=== PATIENT | female | born 1960 | race Caucasian/White ===

== ENCOUNTER 2023-12-20 08:12 | Outpatient (CLI) | payer MEDICARE, SELFPAY | END 2023-12-20 08:13 | disposition home or self-care (01) | PROVIDERS: PCP Family Medicine; Visit Provider Family Medicine | DX: I10 Essential (primary) hypertension (principal); F10.10 Alcohol abuse, uncomplicated; Z86.39 Personal history of other endocrine, nutritional and metabolic disease; Z13.220 Encounter for screening for lipoid disorders; Z13.21 Encounter for screening for nutritional disorder; Z11.59 Encounter for screening for other viral diseases | CPT/HCPCS: 80053; 80061; 82043; 82570; 82607; 86803 ==

== ENCOUNTER 2024-02-07 13:28 | Outpatient (CLI) | payer MEDICARE, SELFPAY ==
--- NOTE | 2024-02-07 13:45 | CRLHL7_ITS ---
For Patients: As a result of the Century Cures Act, medical imaging exams and procedure reports are released immediately into your electronic medical record. You may view this report before your referring provider. If you have questions, please contact your health care provider. CLINICAL HISTORY: Patient with cerebral aneurysm. TECHNIQUE: 3D TOF MRA of the head was performed. 3D MIP reformats were performed at an independent workstation. COMPARISON: None available. FINDINGS: The petrous, cavernous, and supraclinoid segments of the internal carotid arteries are patent. The anterior and middle cerebral arteries are patent. The anterior communicating artery is visualized and within normal limits. The intracranial vertebral arteries, basilar trunk, and posterior cerebral arteries are patent. 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 No evidence of cerebral aneurysm or findings to suggest an arterial-venous shunting lesion. IMPRESSION: 2mm left superior hypophyseal ICA aneurysm. Dictated by Keyur Vasquez MD @ 02/09/2024 10:23:07 PM (Electronically Signed)
--- NOTE | 2024-02-07 15:30 | CRLHL7_ITS ---
For Patients: As a result of the Century Cures Act, medical imaging exams and procedure reports are released immediately into your electronic medical record. You may view this report before your referring provider. If you have questions, please contact your health care provider. INDICATION: Lung cancer screening. History of smoking. TECHNIQUE: Low-dose lung cancer screening non-contrast CT chest. Dose reduction techniques were used. COMPARISON: None. FINDINGS: NODULES: None. LUNGS AND PLEURA: Normal. MEDIASTINUM: Normal. CORONARY ARTERY CALCIFICATION: None. LIMITED UPPER ABDOMEN: Normal. MUSCULOSKELETAL: Normal. IMPRESSION: 1. Negative for lung cancer screening purposes. LUNG-RADS CATEGORY 1: Negative. Continue annual screening with low-dose CT chest in 12 months. Please note that all CT scans at this facility use dose modulation, iterative reconstruction, and/or weight-based dosing when appropriate to reduce radiation dose to as low as reasonably achievable. Dictated by Tato Ford MD @ 02/08/2024 12:48:09 PM (Electronically Signed)
== END 2024-02-07 13:29 | disposition home or self-care (01) ==
PROVIDERS: PCP Family Medicine; Visit Provider Family Medicine
DX: I67.1 Cerebral aneurysm, nonruptured (principal); Z12.2 Encounter for screening for malignant neoplasm of respiratory organs; F17.200 Nicotine dependence, unspecified, uncomplicated
CPT/HCPCS: 70544; 71271

== ENCOUNTER 2024-04-25 07:02 | Outpatient (CLI) | payer MEDICARE, SELFPAY ==
--- NOTE | 2024-04-25 07:15 | CRLHL7_ITS ---
For Patients: As a result of the Century Cures Act, medical imaging exams and procedure reports are released immediately into your electronic medical record. You may view this report before your referring provider. If you have questions, please contact your health care provider. ULTRASOUND ABDOMINAL AORTA INDICATION: Abdominal aortic aneurysm screening. COMPARISON: None. TECHNIQUE: The abdominal aorta and iliac arteries were examined with childress-scale ultrasound, color flow and Doppler spectral analysis. Bypass grafts and stents may be evaluated per exam specific protocol. Vessel size, peak systolic velocity (PSV) and velocity ratios if applicable, were obtained and documented at sites per exam specific protocol. FINDINGS: Entire aorta visualized: Yes Proximal AO: 2.4 cm AP x 2.5 cm width Mid AO: 1.9 cm AP x 1.9 cm width Distal AO: 1.6 cm AP x 1.7 cm width Right GRETTA: 1.2 cm AP x 1.2 cm width Left GRETTA: 1.1 cm AP x 1.1 cm width Outpouching location: Infrarenal; 2 cm AP x 2.3 cm transverse x 1.5 cm long There is a saccular outpouching arising from the anterolateral right side of the infrarenal abdominal aorta which is suboptimally visualized. The abdominal aorta in this region measures approximately 2 x 2.3 cm in AP and transverse dimensions. Diffuse atherosclerotic disease is seen throughout the abdominal aorta. IMPRESSION: Focal saccular outpouching along the anterolateral right infrarenal abdominal aorta. Entities such as penetrating atherosclerotic ulcer or focal saccular abdominal aortic ectasia cannot be excluded. Recommend further characterization with contrast-enhanced CT angiogram of the abdomen and pelvis. TAMI ANAND M.D. Vascular and Interventional Radiology [email or web address] Transcribed: 11:[address]/Dictated by: Tami Anand MD @ 04/25/2024 11:01:00 AM (Electronically Signed)
== END 2024-04-25 07:03 | disposition home or self-care (01) ==
LOC: US 07:03
PROVIDERS: PCP Family Medicine; Visit Provider Family Medicine
DX: Z13.6 Encounter for screening for cardiovascular disorders (principal); I70.0 Atherosclerosis of aorta; Z87.891 Personal history of nicotine dependence
CPT/HCPCS: 76706

== ENCOUNTER 2024-05-04 16:34 | Outpatient (CLI) | payer MEDICARE, SELFPAY ==
--- NOTE | 2024-05-04 16:45 | CRLHL7_ITS ---
For Patients: As a result of the Century Cures Act, medical imaging exams and procedure reports are released immediately into your electronic medical record. You may view this report before your referring provider. If you have questions, please contact your health care provider. INDICATION: Chest pain. TECHNIQUE: CT chest without contrast and CT chest, abdomen and pelvis acquired with 100 cc Omnipaque 350 IV contrast, dissection protocol. COMPARISON: None. FINDINGS: CHEST: Cardiovascular structures: The unenhanced images demonstrate no evidence of aortic intramural thrombus. Thoracic aorta is normal in caliber without evidence of dissection. Heart size is normal. Mediastinum and jeff: No mass or adenopathy. Lungs and pleura: Lungs are clear. No pleural effusions. Chest wall and axilla: No mass or adenopathy. Bones: Unremarkable for age. ABDOMEN AND PELVIS: Liver: Unremarkable. Gallbladder and bile ducts: Cholecystectomy. Pancreas: Unremarkable. Spleen: Unremarkable. Adrenal glands: Unremarkable. Kidneys: Tiny cortical hypodensities, too small to characterize. No hydronephrosis.. GI tract: Colonic diverticulosis. No bowel obstruction.. Vascular structures: Aortoiliac arterial calcifications. 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 Otherwise, abdominal aorta is normal in caliber without evidence of dissection. Mesenteric arteries are patent. Lymph nodes: Unremarkable. Miscellaneous: Unremarkable. No free air or significant free fluid. Pelvic Organs: Unremarkable. Bones: Unremarkable for age. 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 Otherwise, no acute intrathoracic or intra-abdominal/pelvic abnormality including aortic aneurysm or dissection. Please note that all CT scans at this facility use dose modulation, iterative reconstruction, and/or weight-based dosing when appropriate to reduce radiation dose to as low as reasonably achievable. Dictated by Junaid Hurtado MD @ 05/04/2024 5:54:48 PM (Electronically Signed)
[2024-05-04 17:06] LABS: Creatinine* 1.2 mg/dL (0.5-1.5); Estimated Glomerular Filt Rate 50 ml/min
== END 2024-05-04 16:35 | disposition home or self-care (01) ==
LOC: CT 16:35
PROVIDERS: PCP Family Medicine; Visit Provider Family Medicine
DX: R07.89 Other chest pain (principal); I71.40 Abdominal aortic aneurysm, without rupture, unspecified
CPT/HCPCS: 36415; 71275; 74174; 82565; Q9967

== ENCOUNTER 2024-06-27 13:37 | Outpatient (CLI) | payer MEDICARE, SELFPAY ==
--- NOTE | 2024-06-27 14:00 | CRLHL7_ITS ---
For Patients: As a result of the Century Cures Act, medical imaging exams and procedure reports are released immediately into your electronic medical record. You may view this report before your referring provider. If you have questions, please contact your health care provider. DEXA BONE MINERAL DENSITY STUDY Reason for exam: Osteoporosis. History of breast cancer. Current height (inches): 62 Weight (lbs.): 123 Menopause age: 38 Ethnicity: White 1. Have you had a previous hip or vertebral fracture? No. 2. Have you had any fractures during your adult life which did not result from significant trauma (e.g., auto accident)? No. 3. Did either of your parents have a hip fracture? Yes. 4. Do you smoke? No. 5. Have you ever taken Glucocorticoids? No. 6. Do you have rheumatoid arthritis? No. 7. Do you have secondary osteoporosis? No. 8. Do you drink 3 or more alcoholic drinks per day? No. 9. Are you being treated for osteoporosis? No. 10. Have you ever taken any of the following medications: Actonel, Evista, Fosamax, Miacalcin, Reclast, Boniva, Forteo, HRT (i.e., estrogen/hormone therapy), Protelos, Prolia, Vitamin D, Calcium, other ??? please specify. ANSWER: Yes; Fosamax. 11. Do you have any of the following medical conditions: Anorexia or bulimia, asthma or emphysema, end stage renal disease, hyperparathyroidism, any seizure disorders, cancer, inflammatory bowel diseases, hysterectomy, other ??? please specify. ANSWER: No. 12. What was your maximum height (inches)? 62. 13. Do you perform weightbearing exercise regularly? No. 14. Do you regularly consume dairy products? No. 15. Do you drink caffeinated beverages? Yes. 16. At what age did your period start? 13. 17. Are you premenopausal? No. 18. How many full-term pregnancies have you had? 1. 19. Have you ever missed your period for more than 6 months in a row (not including or menopause)? No. TECHNIQUE: Bone mineral density study was performed using the [employer]. FINDINGS: The results of the study expressed as bone mineral density (BMD) are as follows: Lumbar Spine L1 to L3: BMD: 0.782 g/cm2. T-score: -2.1. Z-score: -0.4. Neck Left: BMD: 0.597 g/cm2. T-score: -2.3. Z-score: -0.7. Right: BMD: 0.510 g/cm2. T-score: -3.1. Z-score: -1.5. Total Left: BMD: 0.605 g/cm2. T-score: -2.8. Z-score: -1.5. Right: BMD: 0.568 g/cm2. T-score: -3.1. Z-score: -1.8. IMPRESSION: Osteoporosis. HENRY CLIFFORD M.D. Diagnostic Radiologist [email or web address] Transcribed: 10:[address]/Dictated by: Henry Clifford MD @ 06/28/2024 8:35:00 AM (Electronically Signed)
--- NOTE | 2024-06-27 14:40 | CRLHL7_ITS ---
For Patients: As a result of the Century Cures Act, medical imaging exams and procedure reports are released immediately into your electronic medical record. You may view this report before your referring provider. If you have questions, please contact your health care provider. BILATERAL SCREENING MAMMOGRAM WITH COMPUTER-AIDED DETECTION AND TOMOSYNTHESIS TECHNIQUE: CC and MLO views were obtained. These mammographic images have been obtained using full-field digital technique. These mammographic images were interpreted with the benefit of computer-aided detection. Breast Tomosynthesis was used in this interpretation. COMPARISON FILM: No comparison available. FINDINGS: There are scattered areas of fibroglandular density. IMPRESSION: There is no radiographic evidence for malignancy. ASSESSMENT: BI-RADS Category 1: Negative RECOMMENDATION: Routine screening mammogram in 1 year. A lay language report of this examination will be provided to the patient. Henry Beal M.D. Diagnostic Radiologist [email or web address] SP/Dictated by: Henry Beal MD @ 06/28/2024 10:13:00 AM (Electronically Signed)
--- NOTE | 2024-07-02 11:37 | PC.SOCIAL ---
Addendum entered and electronically signed by MILTON Patel 07/03/24 13:35: Received call back from pt from message left by social insurance adviser yesterday at request of MD. Pt states she is interested in applying for food stamps. Discussed with pt the [facility] Food Assistance program (formerly [employer] [place]) and the Food shelf for [facility] residents through the [employer]. Emailed this resource information and other resources for financial assistance to pt at email provided by pt, [email or web address]. Asked pt additional questions about her financial concerns and clarified that pt is in agreement with most her check going towards her rent and car payment and that this is the money that her children are taking out of her check. Pt confirmed she agrees to this arrangement and denies any financial abuse or misuse of funds by family. Pt states if she could get on food stamps, that this would help her financially and she will contact [facility] to apply for food assistance. Pt was appreciative of information provided. Original Note: Social work:Per MD order, attempted to call pt for assessment and resources. Called pt at phone number listed on chart [phone]. No identifying information on outgoing message, so message left with contact information for social insurance adviser but no identifying information regarding patient left on message. transition social worker to follow up if message is returned.
== END 2024-06-27 13:38 | disposition home or self-care (01) ==
LOC: RAD 13:38
PROVIDERS: PCP Family Medicine; Visit Provider Family Medicine
DX: Z12.31 Encounter for screening mammogram for malignant neoplasm of breast (principal); Z13.820 Encounter for screening for osteoporosis; M85.89 Other specified disorders of bone density and structure, multiple sites; Z85.3 Personal history of malignant neoplasm of breast
CPT/HCPCS: 77063; 77067; 77080

== ENCOUNTER 2024-10-02 10:31 | Outpatient (CLI) | payer MEDICARE, SELFPAY | END 2024-10-02 10:32 | disposition home or self-care (01) | PROVIDERS: PCP Family Medicine; Visit Provider Family Medicine | DX: I10 Essential (primary) hypertension (principal); F32.A Depression, unspecified; R63.1 Polydipsia; M81.0 Age-related osteoporosis without current pathological fracture; F41.9 Anxiety disorder, unspecified | CPT/HCPCS: 80053; 82306; 84443 ==

== ENCOUNTER 2024-12-28 11:52 | Outpatient (CLI) | payer MEDICARE, SELFPAY | END 2024-12-28 11:53 | disposition home or self-care (01) | PROVIDERS: PCP Family Medicine; Visit Provider Family Medicine | DX: I10 Essential (primary) hypertension (principal); F10.11 Alcohol abuse, in remission; R63.1 Polydipsia | CPT/HCPCS: 80053; 80061; 82043; 82570 ==